=== PATIENT | male | born 1975 | race Caucasian/White ===

== ENCOUNTER 2024-12-18 14:41 | Emergency (ER) | payer OTHER, SELFPAY ==
[2024-12-18 14:46] VITALS: BP 145/97
--- NOTE | 2024-12-18 16:37 | ED.GENMED ---
History of Present Illness
<Lissy Smith, TEACHER'S ASSISTANT - Last Filed: 12/19/24 07:14>
General
Chief Complaint: Dizziness
Source: patient
Exam Limitations: none
Time Seen by Provider: 12/18/24 16:36
Nursing documentation reviewed up to this point in time: agreed with
History of Present Illness
History of Present Illness:
49 yo male with no significant PMHX present for episode of dizziness and vomiting. Woke at 7 a.m. feeling dizzy laying in bed. When he got up, felt nauseous and vomited 3 times, had to help him as his balance was off. He rested until 11 a.m.
when symptoms suddenly disappeared. Has felt well, asymptomatic since.
3 weeks ago he had one episode of dizziness w posterior headache lasting 5 minutes then totally back to being asymptomatic.
Past History
<Lissy Smith, TEACHER'S ASSISTANT - Last Filed: 12/19/24 07:14>
Past History
ED Past Medical History: None
ED Past Surgical History: None
Social History
Tobacco: Non-smoker
Alcohol: None
Personal:
Living: with family
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
Review of Systems
<Lissy Smith, TEACHER'S ASSISTANT - Last Filed: 12/19/24 07:14>
Review of Systems
Allergies reviewed?: Yes
All Other Systems: ROS reviewed and negative except as documented in HPI and ROS
Constitutional: Denies fever or chills
Respiratory: Denies trouble breathing
Cardiac: Denies chest pain
ABD/GI: Denies abdominal pain, nausea, vomiting (since this a.m.) or diarrhea
: Denies dysuria, frequency or difficulty voiding
Musculoskeletal: Reports no symptoms
Skin: Reports no symptoms
Neurological: Denies dizzy (not at this time), headache, weakness or numbness
Phy Exam
<Lissy Smith TEACHER'S ASSISTANT - Last Filed: 12/19/24 07:14>
Physical Exam
Physical Exam:
GENERAL: No acute distress. A&Ox3.
CONSTITUTIONAL: Afebrile.
EYES: clear, conjunctivae normal, PERRL, EOMs intact.
ENMT: moist mucus membranes, Pharynx nl, TMs normal
RESPIRATORY: Regular respirations, nonlabored, lungs clear.
CARDIOVASCULAR: Regular rate and rhythm, no murmurs, no rubs.
GI: Soft, nontender, normal BS
MUSCULOSKELETAL: Moves with ease. Well perfused.
SKIN: Warm, dry, pink
PSYCH: Normal mood and affect. Well kept, interactive and appropriate
NEUROLOGIC: Awake, alert and oriented. CN II through XII intact, [id number] intact, ambulates well with steady gait. No focal neurological deficits
Course
<Lissy Smith TEACHER'S ASSISTANT - Last Filed: 12/19/24 07:14>
Orders/Labs/Results
Orders:
Orders
12/18/24 14:50
ECG [Electrocardiogram (*1)] Urgent
Reason for Study: Vertigo / Dizzy
EKG- Treatment ONCE
12/18/24 16:37
CT Head W/o Iv Contrast Urgent
Comment:
Reason For Exam: dizziness, vomiting
Vital Signs
Initial and Last Documented VS:
Initial Vital Signs
Temp Pulse Resp BP Pulse Ox
97.8 F 105 20 145/97 100
12/18/24 14:46 12/18/24 14:46 12/18/24 14:46 12/18/24 14:46 12/18/24 14:46
Last Documented Vital Signs
Temp Pulse Resp BP Pulse Ox
97.8 F 105 20 135/97 98
12/18/24 14:46 12/18/24 14:46 12/18/24 14:46 12/18/24 17:25 12/18/24 17:30
Digital Camera Technician consulted with Physician
Digital Camera Technician consulted with physician?: Yes
Name of Physician Consulted: Sandhya
<Yessenia Mejia PA-C - Last Filed: 12/18/24 22:20>
Orders/Labs/Results
Orders:
Orders
12/18/24 14:50
ECG [Electrocardiogram (*1)] Urgent
Reason for Study: Vertigo / Dizzy
EKG- Treatment ONCE
12/18/24 16:37
CT Head W/o Iv Contrast Urgent
Comment:
Reason For Exam: dizziness, vomiting
Vital Signs
Initial and Last Documented VS:
Initial Vital Signs
Temp Pulse Resp BP Pulse Ox
97.8 F 105 20 145/97 100
12/18/24 14:46 12/18/24 14:46 12/18/24 14:46 12/18/24 14:46 12/18/24 14:46
Last Documented Vital Signs
Temp Pulse Resp BP Pulse Ox
97.8 F 105 20 135/97 98
12/18/24 14:46 12/18/24 14:46 12/18/24 14:46 12/18/24 17:25 12/18/24 17:30
<Lissy Smith NP - Last Filed: 12/19/24 07:14>
MDM/Problems Addressed
Differential Diagnosis Includes:
BPPV, labyrinthitis, brain bleed/mass
MDM/Problems Addressed:
49 yo male with no significant PMHX present for episode of dizziness and vomiting. Woke at 7 a.m. feeling dizzy laying in bed. When he got up, felt nauseous and vomited 3 times, had to help him as his balance was off. He rested until 11 a.m.
when symptoms suddenly disappeared. Has felt well, asymptomatic since.
3 weeks ago he had one episode of dizziness w posterior headache lasting 5 minutes then totally back to being asymptomatic.
Afebrile, NAD, normal neuro exam
EKG Sinus tach HR 102
5:20 p.m.
VS rechecked HR [address]. Remains asymptomatic
Case discussed with Yessenia SINGH who will assume care from this point.
Also discussed with Dr. Arthur
<Lissy Smith TEACHER'S ASSISTANT - Last Filed: 12/19/24 07:14>
*EKG
EKG Intrepretation Date: 12/18/24
Interpretation: abnormal
Heart Rate: 102
Rate: tachycardiac
Rhythm: sinus
[place]: normal axis
Interval: normal interval
QRS Pattern: normal QRS
Ischemia: no ischemia
<Yessenia Mejia PA-C - Last Filed: 12/18/24 22:20>
*Pulse Oximetry
Patient hypoxic: no
*Critical Care Note
Total Time (30-74mins, 75-104mins- exclusive of procedures): Not Applicable
<Yessenia Mejia PA-C - Last Filed: 12/18/24 22:20>
Update Note
Update Note:
Update by Yessenia Mejia PA-C
6:18 pm--CT scan negative for any acute intracranial abnormality. On my exam he has no focal neurologic deficits. Considering patient has no focal neurologic deficits, has a normal gait, is asymptomatic, patient stable for discharge. Considering
patient's symptoms at home seem to be positional and he has associated vomiting as well, suspect benign paroxysmal positional vertigo. Discussed follow-up with primary care provider and potential neuro evaluation. Patient stable for discharge.
Return precautions discussed.
ED Attending Note
<Lissy Smith TEACHER'S ASSISTANT - Last Filed: 12/19/24 07:14>
-
Portions of this chart may have been created with voice recognition software.� Occasional wrong word or��sound alike� substitutions may have occurred due to the inherent limitations of voice recognition software.
Discharge Plan
Departure
Patient Disposition: Home (Routine Discharge)
Date of Disposition: 12/18/24
Time of Disposition: 18:46
Patient with high blood pressure during this ER visit?: Yes
Condition: Good
Discharge Problem:
Vertigo
Instructions: Vertigo (a Type of Dizziness) (DC), BLOOD PRESSURE
Referrals:
Andressa Ennis NP [Family Provider] -
Activity Restrictions/Additional Instructions:
Your CT scan showed no acute intracranial abnormality. Your EKG showed that your heart rate was a bit fast but was otherwise normal.
Please continue to monitor your symptoms. Please follow-up with your primary care provider.
PLEASE RETURN EMERGENCY DEPARTMENT SHOULD YOU DEVELOP WORSENING OF YOUR SYMPTOMS, INTRACTABLE NAUSEA AND VOMITING, FAINTING SPELLS, LOSS OF VISION, BLURRY VISION, CHEST PAIN, SHORTNESS OF BREATH, DIFFICULTY WALKING, NECK PAIN, OR ANY OTHER SIGNS OR
SYMPTOMS WORRISOME TO YOU.
Interventions
Interventions:
*Risk Screen - Suicide Last Done: 12/18/24 14:49
*General Assessment Last Done: 12/18/24 14:46
*Nursing Disposition Last Done: 12/18/24 19:12
ED- Neurological Assessment Last Done: 12/18/24 16:04
ED- Cardiac Assessment Last Done: 12/18/24 16:04
Discharge Date and Time
Discharge Date/Time: 12/18/24 19:42
Print Language: MAORI
[2024-12-18 17:25] VITALS: BP 135/97
== END 2024-12-18 19:42 | disposition home or self-care (01) ==
LOC: EMR 14:41
PROVIDERS: EMERGENCY PHYSICIAN Emergency Medicine; FAMILY PHYSICIAN Nurse Practitioner Adult Health
DX: R42 Dizziness and giddiness (principal); R11.2 Nausea with vomiting, unspecified; R00.0 Tachycardia, unspecified; R03.0 Elevated blood-pressure reading, without diagnosis of hypertension
CPT/HCPCS: 99284; 70450; 93005